=== PATIENT | male | born 1945 | race Caucasian/White ===

== ENCOUNTER → 2017-01-10 | Outpatient (CLI) | payer OTHER ==
[~2017-01-10] MED LIST: ALBU17IN INH; ALBU83IN INH; ALLO100T PO; BREO1INH INH; BUME0.5T PO; DEMA20TA6 PO; DEXI60CA PO; FLOM5CAP PO; INCR1INH INH; K-TA10TA2 PO; PACE200T PO; PRAD75CA3 PO; PROS5TAB PO; SPIR25TA2 PO; WELC625T PO; [UNRECOGNIZED DRUG - CODE] INH
[2017-01-10 15:15] LABS: ALBUMIN 3.7 GM/DL (3.2-5.2); ALBUMIN/GLOBULIN RATIO 1.32 (1.00-1.93); ALKALINE PHOSPHATASE 85 U/L (45-117); ALT/SGPT 26 U/L (12-78); ANION GAP 7 MEQ/L (8-16); AST/SGOT 20 U/L (15-37); BILIRUBIN,TOTAL 0.3 MG/DL (0.2-1.0); BLOOD UREA NITROGEN 22 MG/DL (7-18); CALCIUM LEVEL 8.6 MG/DL (8.8-10.2); CARBON DIOXIDE LEVEL 31 MEQ/L (21-32); CHLORIDE LEVEL 103 MEQ/L (98-107); GLOMERULAR FILTRATION RATE > 60.0 (>42); GLUCOSE, FASTING 95 MG/DL (83-110); MAGNESIUM LEVEL 2.3 MG/DL (1.8-2.4); POTASSIUM SERUM 3.7 MEQ/L (3.5-5.1); SODIUM LEVEL 141 MEQ/L (136-145); TOTAL PROTEIN 6.5 GM/DL (6.4-8.2)
== END ==
LOC: M LAB 14:20
PROVIDERS: ATTEND Internal Medicine Cardiovascular Disease
DX: I25.10 Atherosclerotic heart disease of native coronary artery without angina pectoris (principal); I50.32 Chronic diastolic (congestive) heart failure

== ENCOUNTER → 2017-02-25 | Outpatient (CLI) | payer OTHER ==
[~2017-02-25] MED LIST changes: +COLE625TAB PO; -DEXI60CA PO; +DEXI60CA2 PO; -WELC625T PO
--- NOTE | 2017-03-04 10:05 | REP ---
MAXILLOFACIAL CT WITHOUT CONTRAST: HISTORY: Chronic sinusitis. COMPARISON: 10/18/2014 The sinuses are clear. The osteomeatal units are patent. The middle and inferior nasal turbinates are partially paradoxical. There is marco a bullosa of the right middle nasal turbinate. There is mild deviation of the nasal septum to the left. The cribriform plate, medial robertson of the orbits and optic canals are intact. The carotid canals form a segment of the posterolateral robertson of the sphenoid sinus. Minimal mucosal thickening is present in the left mastoid air cells. There is sclerosis of the left mastoid. These findings are secondary to chronic inflammatory disease. IMPRESSION: There is no acute or chronic sinusitis. Signed by Roberto Dyson MD 03/04/2017 10:07 A
== END ==
LOC: M RAD 16:43
PROVIDERS: ATTEND Otolaryngology
DX: J32.4 Chronic pansinusitis (principal)

== ENCOUNTER → 2018-11-24 | Outpatient (REF) | payer MEDICARE ==
[~2018-11-24] MED LIST changes: -BUME0.5T PO; +BUME0.5T2 PO; +FLOM0.4C39 PO; -FLOM5CAP PO; +SPIR-10 PO; -SPIR25TA2 PO
== END ==
LOC: M LAB REF 16:08
PROVIDERS: ATTEND Physician Assistant
DX: N39.0 Urinary tract infection, site not specified (principal)

== ENCOUNTER → 2019-03-31 | Outpatient (REF) | payer MEDICARE ==
[~2019-03-31] MED LIST changes: -PRAD75CA3 PO; +PRAD75CA5 PO
[2019-03-31 17:06] LABS: BASO # 0.1 10^3/uL (0.0-0.2); BASO % 1.1 % (0.0-1.0); EOS # 0.2 10^3/uL (0.0-0.50); EOS % 2.6 % (0.0-3.0); HEMATOCRIT 44.9 % (42.0-52.0); HEMOGLOBIN 14.2 g/dl (13.5-17.5); LYMPH % 12.9 % (24.0-44.0); MEAN CORPUSCULAR HEMOGLOBIN 30.7 pg (27.0-33.0); MEAN CORPUSCULAR HGB CONC 31.6 g/dl (32.0-36.5); MEAN CORPUSCULAR VOLUME 97.2 fl (80.0-96.0); MONO # 0.7 10^3/uL (0.0-0.8); MONO % 8.2 % (0.0-5.0); NEUTROPHILS # 5.9 10^3/uL (1.8-7.7); NEUTROPHILS % 73.5 % (36.0-66.0); PLATELET COUNT, AUTOMATED 339 10^3/uL (150-450); RED BLOOD COUNT 4.62 10^6/uL (4.30-6.10); WHITE BLOOD COUNT 8.1 10^3/uL (4.0-10.0)
[2019-03-31 17:16] LABS: ALBUMIN 4.3 GM/DL (3.2-5.2); ALT/SGPT 30 U/L (12-78); BILIRUBIN,TOTAL 0.5 MG/DL (0.2-1.0); BLOOD UREA NITROGEN 20 MG/DL (7-18); CARBON DIOXIDE LEVEL 28 MEQ/L (21-32); CHLORIDE LEVEL 105 MEQ/L (98-107); CHOLESTEROL LEVEL 226 MG/DL (<200); CHOLESTEROL RISK RATIO 5.022 (<5); CREATININE FOR GFR 1.23 MG/DL (0.70-1.30); GLOMERULAR FILTRATION RATE > 60.0 (>42); GLUCOSE, FASTING 92 MG/DL (70-100); HDL CHOLESTEROL 45 MG/DL (>40); LDL CHOLESTEROL 147 MG/DL (<100); NON-HDL-C 181 MG/DL; POTASSIUM SERUM 4.5 MEQ/L (3.5-5.1); SODIUM LEVEL 140 MEQ/L (136-145); TOTAL PROTEIN 7.2 GM/DL (6.4-8.2); TRIGLYCERIDES LEVEL 168 MG/DL (<150)
== END ==
LOC: M SFHCADAM 09:35
PROVIDERS: ATTEND Family Medicine
DX: I11.0 Hypertensive heart disease with heart failure (principal); I50.9 Heart failure, unspecified

== ENCOUNTER → 2019-12-31 | Outpatient (CLI) | payer MEDICARE ==
[2019-12-31 16:29] LABS: APPEARANCE, URINE HAZY (CLEAR); BACTERIA, URINE AUTO NEGATIVE (NEGATIVE); BILIRUBIN, URINE AUTO NEGATIVE (NEGATIVE); BLOOD, URINE BLOOD NEGATIVE (NEGATIVE); COLOR, URINE YELLOW (YELLOW); GLUCOSE, URINE (UA) AUTO NEGATIVE (NEGATIVE); KETONE, URINE AUTO NEGATIVE (NEGATIVE); LEUKOCYTE ESTERASE, URINE AUTO 2+ (NEGATIVE); NITRITE, URINE AUTO NEGATIVE (NEGATIVE); PROTEIN, URINE AUTO NEGATIVE (NEGATIVE); RBC, URINE AUTO 5 /HPF (0-3); RENAL EPITHELIAL CELLS 2 /HPF; SPECIFIC GRAVITY URINE AUTO 1.012 (1.002-1.035); SQUAMOUS EPITHELIAL CELL UR AU 0 /HPF (0-6); UROBILINOGEN, URINE AUTO 0.2 mg/dL (0.0-2.0); WBC, URINE AUTO 98 /HPF (0-3)
== END ==
LOC: M WUC 13:41
PROVIDERS: ATTEND Physician Assistant
DX: N39.0 Urinary tract infection, site not specified (principal)

== ENCOUNTER → 2020-04-23 | Outpatient (CLI) | payer MEDICARE | LOC: M WUC 15:31 | PROVIDERS: ATTEND Physician Assistant | DX: Z12.5 Encounter for screening for malignant neoplasm of prostate (principal) ==

== ENCOUNTER → 2020-08-16 | Outpatient (REF) | payer MEDICARE ==
[2020-08-16 18:12] LABS: APPEARANCE, URINE HAZY (CLEAR); BACTERIA, URINE AUTO NEGATIVE (NEGATIVE); BILIRUBIN, URINE AUTO NEGATIVE (NEGATIVE); BLOOD, URINE BLOOD NEGATIVE (NEGATIVE); COLOR, URINE YELLOW (YELLOW); GLUCOSE, URINE (UA) AUTO NEGATIVE (NEGATIVE); KETONE, URINE AUTO NEGATIVE (NEGATIVE); LEUKOCYTE ESTERASE, URINE AUTO 2+ (NEGATIVE); NITRITE, URINE AUTO NEGATIVE (NEGATIVE); PROTEIN, URINE AUTO NEGATIVE (NEGATIVE); RBC, URINE AUTO 1 /HPF (0-3); SPECIFIC GRAVITY URINE AUTO 1.014 (1.002-1.035); SQUAMOUS EPITHELIAL CELL UR AU 0 /HPF (0-6); UROBILINOGEN, URINE AUTO 0.2 mg/dL (0.0-2.0); WBC, URINE AUTO 108 /HPF (0-3)
== END ==
LOC: M LAB REF 17:50
PROVIDERS: ATTEND Physician Assistant Medical
DX: R30.0 Dysuria (principal)

== ENCOUNTER → 2020-10-02 | Outpatient (CLI) | payer MEDICARE | LOC: M WUC 14:36 | PROVIDERS: ATTEND Physician Assistant | DX: N40.0 Benign prostatic hyperplasia without lower urinary tract symptoms (principal) ==

== ENCOUNTER → 2021-03-30 | Outpatient (CLI) | payer MEDICARE ==
[2021-03-30 18:05] LABS: CALCIUM LEVEL 9.5 MG/DL (8.8-10.2); CREATININE FOR GFR 1.45 MG/DL (0.70-1.30); GLOMERULAR FILTRATION RATE 50.6 (>42); POTASSIUM SERUM 3.5 MEQ/L (3.5-5.1)
== END ==
LOC: M WUC 13:57
PROVIDERS: ATTEND Internal Medicine Cardiovascular Disease
DX: Z00.00 Encounter for general adult medical examination without abnormal findings (principal)

== ENCOUNTER → 2021-10-12 | Outpatient (CLI) | payer MEDICARE ==
[2021-10-12 16:12] LABS: CREATININE FOR GFR 1.53 MG/DL (0.70-1.30); GLOMERULAR FILTRATION RATE 47.6 (>42)
== END ==
LOC: M WUC 14:09
PROVIDERS: ATTEND Internal Medicine Cardiovascular Disease
DX: R79.89 Other specified abnormal findings of blood chemistry (principal)

== ENCOUNTER → 2022-02-09 | Outpatient (CLI) | payer MEDICARE ==
[~2022-02-09] MED LIST changes: +ALBU2.5V10 INH; -ALBU83IN INH
[2022-02-09 13:18] LABS: HEMOGLOBIN A1c 5.7 %
[2022-02-09 13:26] LABS: CALCIUM LEVEL 9.6 MG/DL (8.8-10.2); CHOLESTEROL RISK RATIO 3.94 (<5); CREATININE FOR GFR 1.78 MG/DL (0.70-1.30); GLOMERULAR FILTRATION RATE 39.9 (>42); POTASSIUM SERUM 4.4 MEQ/L (3.5-5.1)
== END ==
LOC: M ADAMS 11:00
PROVIDERS: ATTEND Student in an Organized Health Care Education/Training Program
DX: I50.9 Heart failure, unspecified (principal); Z79.899 Other long term (current) drug therapy

== ENCOUNTER → 2022-04-07 | Outpatient (CLI) | payer MEDICARE | LOC: M WUC 15:10 | PROVIDERS: ATTEND Physician Assistant | DX: Z12.5 Encounter for screening for malignant neoplasm of prostate (principal) ==

== ENCOUNTER → 2022-09-06 | Outpatient (CLI) | payer MEDICARE ==
[~2022-09-06] MED LIST changes: +COLE625T17 PO; -COLE625TAB PO
[2022-09-06 16:45] LABS: BASO # 0.1 10^3/uL (0.0-0.2); BASO % 1.3 % (0.0-1.0); EOS # 0.3 10^3/uL (0.0-0.5); EOS % 3.8 % (0.0-3.0); HEMATOCRIT 44.4 % (42.0-52.0); HEMOGLOBIN 13.7 g/dl (13.5-17.5); LYMPH % 11.8 % (24.0-44.0); MEAN CORPUSCULAR HEMOGLOBIN 31.2 pg (27.0-33.0); MEAN CORPUSCULAR HGB CONC 30.9 g/dl (32.0-36.5); MEAN CORPUSCULAR VOLUME 101.1 fl (80.0-96.0); MONO # 0.6 10^3/uL (0.0-0.8); MONO % 7.2 % (2.0-8.0); NEUTROPHILS # 6.4 10^3/uL (1.5-8.5); NEUTROPHILS % 73.8 % (36.0-66.0); PLATELET COUNT, AUTOMATED 298 10^3/uL (150-450); RED BLOOD COUNT 4.39 10^6/uL (4.30-6.10); WHITE BLOOD COUNT 8.6 10^3/uL (4.0-10.0)
== END ==
LOC: M WUC 13:15
PROVIDERS: ATTEND Nurse Practitioner
DX: I50.9 Heart failure, unspecified (principal)

== ENCOUNTER → 2022-10-04 | Outpatient (CLI) | payer MEDICARE ==
[2022-10-04 14:58] LABS: BASO # 0.1 10^3/uL (0.0-0.2); BASO % 1.5 % (0.0-1.0); EOS # 0.3 10^3/uL (0.0-0.5); EOS % 3.7 % (0.0-3.0); HEMATOCRIT 42.8 % (42.0-52.0); HEMOGLOBIN 13.1 g/dl (13.5-17.5); LYMPH # 0.7 10^3/uL (1.5-5.0); MEAN CORPUSCULAR HEMOGLOBIN 31.4 pg (27.0-33.0); MEAN CORPUSCULAR HGB CONC 30.6 g/dl (32.0-36.5); MEAN CORPUSCULAR VOLUME 102.6 fl (80.0-96.0); MONO # 0.8 10^3/uL (0.0-0.8); MONO % 10.9 % (2.0-8.0); NEUTROPHILS # 5.3 10^3/uL (1.5-8.5); NEUTROPHILS % 73.5 % (36.0-66.0); PLATELET COUNT, AUTOMATED 263 10^3/uL (150-450); RED BLOOD COUNT 4.17 10^6/uL (4.30-6.10); WHITE BLOOD COUNT 7.2 10^3/uL (4.0-10.0)
[2022-10-04 15:03] LABS: ALBUMIN 4.1 G/DL (3.2-5.2); BILIRUBIN,TOTAL 0.9 MG/DL (0.3-1.2); CALCIUM LEVEL 9.2 MG/DL (8.3-10.6); CHOLESTEROL RISK RATIO 5.58 (<5); CREATININE FOR GFR 1.32 MG/DL (0.70-1.30); GLOMERULAR FILTRATION RATE 56.3 (>42); HDL CHOLESTEROL 38.3 MG/DL (>40); LDL CHOLESTEROL 141.9 MG/DL (<100); POTASSIUM SERUM 4.3 MMOL/L (3.5-5.1); TOTAL PROTEIN 6.9 G/DL (5.7-8.2)
[2022-10-04 15:05] LABS: THYROID STIMULATING HORMONE 3.133 uIU/ML (0.55-4.78)
[2022-10-04 15:13] LABS: CREATININE, URINE 58.9 MG/DL; CREATININE,RANDOM URINE 58.9 MG/DL; MAU/CREAT RATIO 84.8 MCG/MG (0.0-30.0)
[2022-10-04 15:22] LABS: HEMOGLOBIN A1c 5.5 % (4.0-6.0)
== END ==
LOC: M WUC 10:48
PROVIDERS: ATTEND Nurse Practitioner
DX: J44.9 Chronic obstructive pulmonary disease, unspecified (principal); I50.9 Heart failure, unspecified; K21.9 Gastro-esophageal reflux disease without esophagitis; Z79.899 Other long term (current) drug therapy

== ENCOUNTER → 2022-11-19 | Outpatient (CLI) | payer MEDICARE ==
[2022-11-19 16:52] LABS: BASO # 0.1 10^3/uL (0.0-0.2); BASO % 1.4 % (0.0-1.0); EOS # 0.3 10^3/uL (0.0-0.5); EOS % 3.1 % (0.0-3.0); HEMATOCRIT 42.5 % (42.0-52.0); HEMOGLOBIN 13.1 g/dl (13.5-17.5); LYMPH % 11.1 % (24.0-44.0); MEAN CORPUSCULAR HEMOGLOBIN 31.1 pg (27.0-33.0); MEAN CORPUSCULAR HGB CONC 30.8 g/dl (32.0-36.5); MONO # 0.8 10^3/uL (0.0-0.8); MONO % 8.4 % (2.0-8.0); NEUTROPHILS # 6.8 10^3/uL (1.5-8.5); PLATELET COUNT, AUTOMATED 315 10^3/uL (150-450); RED BLOOD COUNT 4.21 10^6/uL (4.30-6.10)
[2022-11-19 16:58] LABS: ALBUMIN 4.2 G/DL (3.2-5.2); ALKALINE PHOSPHATASE 90 U/L (46-116); ALT/SGPT 31 U/L (7.0-40); AST/SGOT 15 U/L (<34); BILIRUBIN,TOTAL 0.7 MG/DL (0.3-1.2); BLOOD UREA NITROGEN 28 MG/DL (9-23); CALCIUM LEVEL 9.5 MG/DL (8.3-10.6); CARBON DIOXIDE LEVEL 31 MMOL/L (20-31); CHLORIDE LEVEL 101 MMOL/L (98-107); CREATININE FOR GFR 1.29 MG/DL (0.70-1.30); GLOMERULAR FILTRATION RATE 57.6 (>42); GLUCOSE, FASTING 125 MG/DL (74-106); POTASSIUM SERUM 4.1 MMOL/L (3.5-5.1); SODIUM LEVEL 140 MMOL/L (136-145); TOTAL PROTEIN 6.9 G/DL (5.7-8.2); VITAMIN B12 LEVEL 231 PG/ML (211-911)
[2022-11-19 17:02] LABS: FOLATE > 24.00 NG/ML (>5.4)
== END ==
LOC: M WUC 12:02
PROVIDERS: ATTEND Nurse Practitioner
DX: I10 Essential (primary) hypertension (principal); G47.30 Sleep apnea, unspecified

== ENCOUNTER → 2023-04-18 | Outpatient (CLI) | payer MEDICARE ==
[~2023-04-18] MED LIST changes: +ALBU6.7H6 INH; +ASPI81CH33 PO; +AZIT-12 PO; +CETI10CA13 PO; +FINA-48 PO; +IPRA3SP; -K-TA10TA2 PO; +LEVOTAB10; +LOSA50TA28 PO; +MONT10TA97 PO; +POTA-165 PO; -PROS5TAB PO; +TORS20TA2 PO
== END ==
LOC: M WUC 15:09
PROVIDERS: ATTEND Specialist
DX: N40.1 Benign prostatic hyperplasia with lower urinary tract symptoms (principal)

== ENCOUNTER → 2023-07-12 | Outpatient (REF) | payer MEDICARE | LOC: M LAB REF 19:22 | PROVIDERS: ATTEND Physician Assistant | DX: N39.0 Urinary tract infection, site not specified (principal) ==

== ENCOUNTER → 2023-08-26 | Outpatient (CLI) | payer MEDICARE ==
[2023-08-26 14:44] LABS: HEMATOCRIT 41.9 % (42.0-52.0); MEAN CORPUSCULAR HEMOGLOBIN 31.6 pg (27.0-33.0); MEAN CORPUSCULAR VOLUME 101.7 fl (80.0-96.0); PLATELET COUNT, AUTOMATED 253 10^3/uL (150-450); RED BLOOD COUNT 4.12 10^6/uL (4.30-6.10); WHITE BLOOD COUNT 10.2 10^3/uL (4.0-10.0)
[2023-08-26 15:11] LABS: CREATININE, URINE 17.8 MG/DL; MAU/CREAT RATIO 16.8 MCG/MG (0.0-30.0)
[2023-08-26 15:13] LABS: IRON (FE) 142 UG/DL (65-175); PERCENT SATURATION 40.9 % (19.7-50.0); TOTAL IRON BINDING CAPACITY 347 UG/DL (250-425)
[2023-08-26 15:17] LABS: ALBUMIN 3.7 G/DL (3.2-5.2); ALKALINE PHOSPHATASE 100 U/L (46-116); ALT/SGPT 18 U/L (7.0-40); AST/SGOT 11 U/L (<34); BLOOD UREA NITROGEN 33 MG/DL (9-23); CALCIUM LEVEL 9.4 MG/DL (8.3-10.6); CARBON DIOXIDE LEVEL 33 MMOL/L (20-31); CHLORIDE LEVEL 103 MMOL/L (98-107); CREATININE FOR GFR 1.72 MG/DL (0.70-1.30); FERRITIN 78.8 NG/ML (10.5-307.3); FOLATE > 24.00 NG/ML (>5.4); GLOMERULAR FILTRATION RATE 41.4 (>42); GLUCOSE, FASTING 112 MG/DL (74-106); POTASSIUM SERUM 4.4 MMOL/L (3.5-5.1); SODIUM LEVEL 143 MMOL/L (136-145); TOTAL PROTEIN 6.3 G/DL (5.7-8.2); VITAMIN B12 LEVEL 1220 PG/ML (211-911)
== END ==
LOC: M WUC 13:18
PROVIDERS: ATTEND Nurse Practitioner
DX: J40 Bronchitis, not specified as acute or chronic (principal); J44.9 Chronic obstructive pulmonary disease, unspecified; I50.9 Heart failure, unspecified; I51.7 Cardiomegaly; Z95.0 Presence of cardiac pacemaker; I27.20 Pulmonary hypertension, unspecified

== ENCOUNTER 2023-11-24 13:17 | Inpatient (IN) | payer MEDICARE ==
[2023-11-24] VITALS (8 sets, daily range): BP systolic 128–151; BP diastolic 59–67; TEMP 97.2–97.3; O2SAT 90–95
[~2023-11-24] VITALS: Ht 177.8 cm; Wt 107.5 kg
[2023-11-24] MEDS: IPRATROPIUM 0.5MG/ALBUTEROL 2.5MG INH SOL UD 3ML (DUONEB) NEB PRN (14:06)
[2023-11-24] MEDS: methylPREDNISolone 125MG 2ML VIAL IV ONE (14:27)
[2023-11-24] MEDS ORDERED: VITA500T16 PO (14:44)
[2023-11-24] MEDS ORDERED: BUDE10.7 (14:44)
[2023-11-24] MEDS ORDERED: OMEGCAP9 PO (14:44)
[2023-11-24] MEDS ORDERED: CVS50CAP PO (14:44)
[2023-11-24] MEDS ORDERED: MUCI1TAB16 PO (14:44)
[2023-11-24] MEDS ORDERED: zinc PO (14:44)
[2023-11-24] MEDS ORDERED: EPLE25TA (14:44)
[2023-11-24] MEDS ORDERED: POTA-136 (14:44)
[2023-11-24] MEDS ORDERED: D 50CAP2 PO (14:44)
[2023-11-24] MEDS ORDERED: CARV3.12 (14:44)
[2023-11-24] MEDS ORDERED: FLUT1BLS17 (14:44)
[2023-11-24] MEDS ORDERED: TORS20TA2 PO (14:44)
[2023-11-24] MEDS ORDERED: NEXI20CA PO (14:44)
[2023-11-24] MEDS ORDERED: ZYRTTAB8 PO (14:44)
[2023-11-24] MEDS ORDERED: glucosamine PO (14:44)
[2023-11-24] MEDS ORDERED: BREO1INH3 (14:44)
[2023-11-24] MEDS ORDERED: GENT28CA2 PO (14:44)
[2023-11-24 14:49] LABS: BASO # 0.1 10^3/uL (0.0-0.2); BASO % 0.3 % (0.0-1.0); EOS # 0.1 10^3/uL (0.0-0.5); EOS % 0.1 % (0.0-3.0); HEMOGLOBIN 11.5 g/dl (13.5-17.5); LYMPH # 0.3 10^3/uL (1.5-5.0); LYMPH % 0.7 % (24.0-44.0); MEAN CORPUSCULAR HEMOGLOBIN 31.1 pg (27.0-33.0); MEAN CORPUSCULAR HGB CONC 31.9 g/dl (32.0-36.5); MEAN CORPUSCULAR VOLUME 97.3 fl (80.0-96.0); MONO # 0.9 10^3/uL (0.0-0.8); MONO % 2.2 % (2.0-8.0); NEUTROPHILS # 37.9 10^3/uL (1.5-8.5); NEUTROPHILS % 92.9 % (36.0-66.0); PLATELET COUNT, AUTOMATED 226 10^3/uL (150-450)
[2023-11-24 14:51] LABS: WHITE BLOOD COUNT 40.8 10^3/uL (4.0-10.0)
[2023-11-24 15:14] LABS: ALBUMIN 2.4 G/DL (3.2-5.2); BILIRUBIN,DIRECT 0.4 MG/DL (<0.4); BILIRUBIN,TOTAL 0.7 MG/DL (0.3-1.2); CALCIUM LEVEL 9.1 MG/DL (8.3-10.6); CK-MB VALUE MASS 2.5 NG/ML (<3.6); CREATININE FOR GFR 2.34 MG/DL (0.70-1.30); GLOMERULAR FILTRATION RATE 28.9 (>42); MB/CK RELATIVE INDEX 6.57 (< OR =4); POTASSIUM SERUM 3.8 MMOL/L (3.5-5.1); TOTAL PROTEIN 5.8 G/DL (5.7-8.2)
[2023-11-24 15:51] LABS: URIC ACID 12.9 MG/DL (3.7-9.2)
[2023-11-24] MEDS: cefTRIAXone SOD 2 GM in D5W MINI-BAG PLUS 50 ML IV ONE (16:09)
[2023-11-24] MEDS: FUROSEMIDE 40MG/4ML VIAL IV ONE (16:10)
[2023-11-24] MEDS ORDERED: HEPARIN SOD (PORCINE) 5000UNITS/ML 1ML VIAL/SYRINGE SQ SCH (18:15)
[2023-11-24] MEDS: LACTOBACILLUS ACIDOPHILUS CAP (BACID) PO SCH (18:18)
[2023-11-24 18:30] LABS: ERYTHROCYTE SEDIMENTATION RATE 86 mm/hr (0-20)
[2023-11-24 18:47] LABS: PROCALCITONIN 0.59 ng/ml
[2023-11-24 19:05] LABS: C REACTIVE PROTEIN QUANTITATIV 25.6 MG/DL (<1.0)
[2023-11-24 19:25] LABS: INR 1.63; PROTHROMBIN TIME 18.8 SECONDS (12.5-14.5)
[2023-11-24] MEDS ORDERED: FLUTICASONE HFA 110MCG 12GM INHALER (FLOVENT) INH SCH (21:00)
[2023-11-24] MEDS ORDERED: CARV3.12 PO (23:48)
[2023-11-24] MEDS ORDERED: CHEL50TA3 PO (23:48)
[2023-11-24] MEDS ORDERED: ASPI-615 PO (23:48)
[2023-11-24] MEDS ORDERED: FLON1SPR NARES (23:48)
[2023-11-24] MEDS ORDERED: POTA-150 PO (23:48)
[2023-11-24] MEDS ORDERED: DOCU100C16 PO (23:48)
[2023-11-24] MEDS ORDERED: OMEG10002 PO (23:48)
[2023-11-24] MEDS ORDERED: BREO1INH3 INH (23:48)
[2023-11-24] MEDS ORDERED: EPLE25TA PO (23:48)
[2023-11-24] MEDS ORDERED: MONT10TA97 PO (23:48)
[2023-11-24] MEDS ORDERED: CETI-14 PO (23:48)
[2023-11-24] MEDS ORDERED: GNP1000T11 PO (23:48)
[2023-11-24] MEDS ORDERED: IPRA3SP NARES (23:48)
[2023-11-24] MEDS ORDERED: C-101TAB3 PO (23:48)
[2023-11-25] VITALS (37 sets, daily range): BP systolic 130–135; BP diastolic 58–63; TEMP 96.8–97.6; O2SAT 85–99
[2023-11-25] MEDS: CARVedilol 3.125 MG TAB PO SCH (00:03)
[2023-11-25 00:16] LABS: CK-MB VALUE MASS 1.8 NG/ML (<3.6)
[2023-11-25 00:18] LABS: MB/CK RELATIVE INDEX 5.8 (< OR =4)
[2023-11-25] MEDS: MONTELUKAST 10 MG TAB PO SCH (01:06)
[2023-11-25] MEDS: PIPERACILLIN/TAZOBACTAM SOD 3.375 GM in D5W MINI-BAG PLUS 50 ML IV SCH (01:06)
[2023-11-25] MEDS: TAMSULOSIN 0.4 MG CAP PO SCH (01:06)
[2023-11-25] MEDS: allopurinoL 100 MG TAB PO STA (01:08)
[2023-11-25] MEDS: MOM 30ML SUSPENSION UDC PO PRN (01:21)
[2023-11-25] MEDS ORDERED: MED REC IN PROGRESS XX SCH (01:30)
[2023-11-25] MEDS ORDERED: SODI88SP NARES (02:14)
[2023-11-25] MEDS ORDERED: RISATAB3 PO (02:14)
[2023-11-25] MEDS: VANCOMYCIN HCL 1,000 MG, VIAL MATE ADAPTER 1 EACH in D5W 250 ML IV ONE ×2 (02:34→03:52)
[2023-11-25] MEDS: BENZONATATE 100MG CAPSULE PO PRN (04:53)
[2023-11-25 06:07] LABS: HEMATOCRIT 34.9 % (42.0-52.0); HEMOGLOBIN 11.2 g/dl (13.5-17.5); MEAN CORPUSCULAR HEMOGLOBIN 30.4 pg (27.0-33.0); MEAN CORPUSCULAR HGB CONC 32.1 g/dl (32.0-36.5); MEAN CORPUSCULAR VOLUME 94.6 fl (80.0-96.0); PLATELET COUNT, AUTOMATED 241 10^3/uL (150-450); RED BLOOD COUNT 3.69 10^6/uL (4.30-6.10)
[2023-11-25 06:13] LABS: WHITE BLOOD COUNT 38.4 10^3/uL (4.0-10.0)
[2023-11-25 06:26] LABS: INR 1.64; PARTIAL THROMBOPLASTIN TIME 41.7 SECONDS (24.8-34.2); PROTHROMBIN TIME 18.9 SECONDS (12.5-14.5)
[2023-11-25 06:32] LABS: URIC ACID 12.9 MG/DL (3.7-9.2)
[2023-11-25 06:34] LABS: CK-MB VALUE MASS 2.6 NG/ML (<3.6)
[2023-11-25 06:35] LABS: ALBUMIN 2.4 G/DL (3.2-5.2); BILIRUBIN,DIRECT 0.3 MG/DL (<0.4); BILIRUBIN,TOTAL 0.4 MG/DL (0.3-1.2); CALCIUM LEVEL 8.9 MG/DL (8.3-10.6); CREATININE FOR GFR 2.33 MG/DL (0.70-1.30); GLOMERULAR FILTRATION RATE 29.1 (>42); MAGNESIUM LEVEL 2.6 MG/DL (1.8-2.4); POTASSIUM SERUM 4.1 MMOL/L (3.5-5.1); TOTAL PROTEIN 5.7 G/DL (5.7-8.2)
[2023-11-25 06:37] LABS: MB/CK RELATIVE INDEX 6.19 (< OR =4)
[2023-11-25 06:54] LABS: MONOCYTES 2 % (0-5); NEUTROPHILS 97 % (28-66); PLATELET ESTIMATE NORMAL (NORMAL)
[2023-11-25 06:55] LABS: ANISOCYTOSIS 1+; POIKILOCYTOSIS 1+
[2023-11-25] MEDS: SYMBICORT 160/4.5MCG INHALER 6GM INH SCH (07:32)
[2023-11-25] MEDS ORDERED: VITAMIN D 1,000 INTERNATIONAL UNITS TABLET PO SCH (09:00)
[2023-11-25] MEDS: FLUTICASONE PROP 0.05% NASAL SPRAY 16 GM (FLONASE) NARES SCH (09:25)
[2023-11-25] MEDS: MIRALAX *UNIT DOSE* 17GM PACKET PO PRN (09:25)
[2023-11-25] MEDS: OMEPRAZOLE 20MG CAP PO SCH (09:26)
[2023-11-25] MEDS: CETIRIZINE (ZyrTEC) 10 MG TAB PO SCH (09:26)
[2023-11-25] MEDS: ASCORBIC ACID 500 MG TAB PO SCH (09:27)
[2023-11-25] MEDS: ASPIRIN 81MG CHEW TABLET PO SCH (09:27)
[2023-11-25] MEDS ORDERED: HOME MED LIST COMPLETE! XX SCH (10:10)
[2023-11-25] MEDS: IPRATROPIUM 0.5MG/ALBUTEROL 2.5MG INH SOL UD 3ML (DUONEB) NEB PRN (10:28)
[2023-11-25] MEDS: TIOTROPIUM INHALER/CAPSULE (SPIRIVA) INH SCH (10:29)
[2023-11-25] MEDS: FUROSEMIDE 40MG/4ML VIAL IV SCH (11:43)
[2023-11-25 15:17] LABS: CK-MB VALUE MASS 2.8 NG/ML (<3.6)
[2023-11-25 15:24] LABS: MB/CK RELATIVE INDEX 6.36 (< OR =4)
[2023-11-25] MEDS: allopurinoL 100 MG TAB PO SCH (18:13)
[2023-11-25] MEDS: VANCOMYCIN HCL 500 MG in D5W MINI-BAG PLUS 100 ML IV SCH (20:34)
[2023-11-26] VITALS (31 sets, daily range): BP systolic 115–187; BP diastolic 58–95; TEMP 97.1–98.8; O2SAT 88–99
[2023-11-26] MEDS ORDERED: VANCOMYCIN HCL 1,000 MG, VIAL MATE ADAPTER 1 EACH in D5W 250 ML IV SCH (05:00)
[2023-11-26 06:48] LABS: BASO % 0.2 % (0.0-1.0); EOS % 0.6 % (0.0-3.0); HEMATOCRIT 33.9 % (42.0-52.0); LYMPH # 0.4 10^3/uL (1.5-5.0); LYMPH % 1.7 % (24.0-44.0); MEAN CORPUSCULAR HEMOGLOBIN 31.1 pg (27.0-33.0); MEAN CORPUSCULAR HGB CONC 32.4 g/dl (32.0-36.5); MEAN CORPUSCULAR VOLUME 95.8 fl (80.0-96.0); MONO # 1.1 10^3/uL (0.0-0.8); NEUTROPHILS # 19.1 10^3/uL (1.5-8.5); NEUTROPHILS % 90.2 % (36.0-66.0); PLATELET COUNT, AUTOMATED 228 10^3/uL (150-450); RED BLOOD COUNT 3.54 10^6/uL (4.30-6.10); WHITE BLOOD COUNT 21.2 10^3/uL (4.0-10.0)
[2023-11-26 06:49] LABS: BASO # 0.1 10^3/uL (0.0-0.2); EOS # 0.1 10^3/uL (0.0-0.5)
[2023-11-26 07:09] LABS: CALCIUM LEVEL 8.9 MG/DL (8.3-10.6); CREATININE FOR GFR 2.28 MG/DL (0.70-1.30); GLOMERULAR FILTRATION RATE 29.8 (>42); MAGNESIUM LEVEL 2.8 MG/DL (1.8-2.4)
[2023-11-26] MEDS: VANCOMYCIN HCL 1,000 MG, VIAL MATE ADAPTER 1 EACH in D5W 250 ML IV SCH (09:32)
[2023-11-26] MEDS: FUROSEMIDE 100MG/10ML VIAL IV SCH (11:32)
[2023-11-26] MEDS: ONDANSETRON 4MG 2ML VIAL IV ONE (18:23)
[2023-11-27] VITALS (13 sets, daily range): BP systolic 118–155; BP diastolic 61–74; TEMP 97–98.9; O2SAT 85–97
[2023-11-27 07:56] LABS: HEMATOCRIT 34.5 % (42.0-52.0); LYMPH % 2.3 % (24.0-44.0); MEAN CORPUSCULAR HGB CONC 31.9 g/dl (32.0-36.5); MEAN CORPUSCULAR VOLUME 97.2 fl (80.0-96.0); NEUTROPHILS % 85.7 % (36.0-66.0); PLATELET COUNT, AUTOMATED 213 10^3/uL (150-450); RED BLOOD COUNT 3.55 10^6/uL (4.30-6.10); WHITE BLOOD COUNT 14.1 10^3/uL (4.0-10.0)
[2023-11-27 07:57] LABS: BASO % 0.2 % (0.0-1.0); EOS # 0.2 10^3/uL (0.0-0.5); EOS % 1.7 % (0.0-3.0); LYMPH # 0.3 10^3/uL (1.5-5.0); MONO # 0.9 10^3/uL (0.0-0.8); MONO % 6.3 % (2.0-8.0); NEUTROPHILS # 12.1 10^3/uL (1.5-8.5)
[2023-11-27 08:23] LABS: CALCIUM LEVEL 8.7 MG/DL (8.3-10.6); CREATININE FOR GFR 2.28 MG/DL (0.70-1.30); GLOMERULAR FILTRATION RATE 29.8 (>42); MAGNESIUM LEVEL 2.6 MG/DL (1.8-2.4); POTASSIUM SERUM 3.8 MMOL/L (3.5-5.1)
[2023-11-27 08:58] LABS: VANCOMYCIN LEVEL TROUGH 15.5 UG/ML (10.0-20.0)
[2023-11-27] MEDS: cefTRIAXone SOD 2 GM in D5W MINI-BAG PLUS 50 ML IV SCH (11:41)
[2023-11-27] MEDS: LOPERAMIDE 2 MG CAPLET PO PRN (11:42)
[2023-11-28 03:48] VITALS: BP 122/58; TEMP 97.9; O2SAT 92
[2023-11-28 05:39] LABS: HEMATOCRIT 35.2 % (42.0-52.0); MEAN CORPUSCULAR VOLUME 96.4 fl (80.0-96.0); RED BLOOD COUNT 3.65 10^6/uL (4.30-6.10)
[2023-11-28 05:40] LABS: BASO # 0.1 10^3/uL (0.0-0.2); BASO % 0.4 % (0.0-1.0); EOS # 0.3 10^3/uL (0.0-0.5); EOS % 1.8 % (0.0-3.0); LYMPH # 0.4 10^3/uL (1.5-5.0); LYMPH % 2.3 % (24.0-44.0); MEAN CORPUSCULAR HEMOGLOBIN 30.1 pg (27.0-33.0); MEAN CORPUSCULAR HGB CONC 31.3 g/dl (32.0-36.5); MONO # 1.1 10^3/uL (0.0-0.8); MONO % 6.9 % (2.0-8.0); NEUTROPHILS # 13.4 10^3/uL (1.5-8.5); PLATELET COUNT, AUTOMATED 229 10^3/uL (150-450)
[2023-11-28 06:02] LABS: CALCIUM LEVEL 9.1 MG/DL (8.3-10.6); CREATININE FOR GFR 2.31 MG/DL (0.70-1.30); GLOMERULAR FILTRATION RATE 29.4 (>42); MAGNESIUM LEVEL 2.7 MG/DL (1.8-2.4); POTASSIUM SERUM 3.5 MMOL/L (3.5-5.1)
[2023-11-28 07:46] VITALS: BP 131/60; TEMP 96.9; O2SAT 95
[2023-11-28] MEDS ORDERED: IPRATROPIUM 0.5MG/ALBUTEROL 2.5MG INH SOL UD 3ML (DUONEB) NEB PRN (10:30)
[2023-11-28 11:24] VITALS: BP 130/60; TEMP 97.1; O2SAT 96
[2023-11-28] MEDS: SODIUM CHLORIDE HYPERTONIC 3% 4ML NEB SOL INH SCH (12:00)
[2023-11-28] MEDS: LEVALBUTEROL 1.25MG 0.5ML CONCENTRATE NEB INH SCH (12:00)
[2023-11-28] MEDS: POTASSIUM CHLORIDE 10MEQ SR TABLET PO SCH (12:08)
[2023-11-28 20:04] VITALS: BP 130/59; TEMP 97.9; O2SAT 95
[2023-11-29 03:49] VITALS: BP 133/61; TEMP 97.2; O2SAT 94
[2023-11-29 05:39] LABS: BASO # 0.1 10^3/uL (0.0-0.2); BASO % 0.6 % (0.0-1.0); EOS # 0.3 10^3/uL (0.0-0.5); EOS % 1.9 % (0.0-3.0); HEMATOCRIT 34.3 % (42.0-52.0); HEMOGLOBIN 10.8 g/dl (13.5-17.5); LYMPH # 0.3 10^3/uL (1.5-5.0); LYMPH % 2.1 % (24.0-44.0); MEAN CORPUSCULAR HEMOGLOBIN 30.3 pg (27.0-33.0); MEAN CORPUSCULAR HGB CONC 31.5 g/dl (32.0-36.5); MEAN CORPUSCULAR VOLUME 96.3 fl (80.0-96.0); MONO % 5.9 % (2.0-8.0); NEUTROPHILS # 13.6 10^3/uL (1.5-8.5); NEUTROPHILS % 84.8 % (36.0-66.0); PLATELET COUNT, AUTOMATED 229 10^3/uL (150-450); RED BLOOD COUNT 3.56 10^6/uL (4.30-6.10); WHITE BLOOD COUNT 16.1 10^3/uL (4.0-10.0)
[2023-11-29 06:12] LABS: CALCIUM LEVEL 8.7 MG/DL (8.3-10.6); CREATININE FOR GFR 1.77 MG/DL (0.70-1.30); GLOMERULAR FILTRATION RATE 39.9 (>42); MAGNESIUM LEVEL 2.4 MG/DL (1.8-2.4); POTASSIUM SERUM 3.6 MMOL/L (3.5-5.1)
[2023-11-29 07:34] VITALS: BP 136/63; TEMP 98.3; O2SAT 91
[2023-11-29] MEDS: POTASSIUM CHLORIDE 10MEQ SR TABLET PO SCH (11:54)
[2023-11-29 15:21] LABS: BODY FLUID CULTURE Not indicated. (.); LEGIONELLA ANTIGEN URINE Negative (Negative); ORGANISM ID Not indicated. (.); SPECIMEN SOURCE Urine (.); URINE STREP PNEUMONIAE ANTIGEN Negative (Negative)
[2023-11-29 16:15] VITALS: BP 137/63; TEMP 97.8; O2SAT 94
[2023-11-29 19:36] LABS: PERCENT SATURATION 8.9 % (19.7-50.0)
[2023-11-29 19:41] VITALS: BP 135/62; TEMP 98.1; O2SAT 93
[2023-11-29] MEDS ORDERED: HEPARIN SOD (PORCINE) 5000UNITS/ML 1ML VIAL/SYRINGE SQ SCH (21:00)
[2023-11-30 03:36] VITALS: BP 135/61; TEMP 97.5; O2SAT 92
[2023-11-30 06:23] LABS: BASO # 0.1 10^3/uL (0.0-0.2); BASO % 0.7 % (0.0-1.0); EOS # 0.3 10^3/uL (0.0-0.5); EOS % 2.2 % (0.0-3.0); HEMATOCRIT 34.8 % (42.0-52.0); HEMOGLOBIN 10.8 g/dl (13.5-17.5); LYMPH # 0.4 10^3/uL (1.5-5.0); MEAN CORPUSCULAR HEMOGLOBIN 30.5 pg (27.0-33.0); MEAN CORPUSCULAR VOLUME 98.3 fl (80.0-96.0); MONO # 1.1 10^3/uL (0.0-0.8); MONO % 7.1 % (2.0-8.0); NEUTROPHILS # 12.1 10^3/uL (1.5-8.5); PLATELET COUNT, AUTOMATED 255 10^3/uL (150-450); RED BLOOD COUNT 3.54 10^6/uL (4.30-6.10); WHITE BLOOD COUNT 14.8 10^3/uL (4.0-10.0)
[2023-11-30 07:12] LABS: C REACTIVE PROTEIN QUANTITATIV 4.3 MG/DL (<1.0)
[2023-11-30 07:13] LABS: CALCIUM LEVEL 8.9 MG/DL (8.3-10.6); CREATININE FOR GFR 1.6 MG/DL (0.70-1.30); GLOMERULAR FILTRATION RATE 44.8 (>42); MAGNESIUM LEVEL 2.4 MG/DL (1.8-2.4); POTASSIUM SERUM 3.8 MMOL/L (3.5-5.1)
[2023-11-30 07:46] VITALS: BP 153/66; TEMP 97.8; O2SAT 95
[2023-11-30] MEDS: POTASSIUM CHLORIDE 10MEQ SR TABLET PO SCH (09:57)
[2023-11-30 12:55] VITALS: BP 126/58; TEMP 97.2; O2SAT 94
[2023-11-30 14:30] LABS: PROCALCITONIN 0.1 ng/ml
[2023-11-30] MEDS: guaiFENesin SYRUP 200MG 10ML UDC PO PRN (14:42)
[2023-11-30 16:00] VITALS: BP 156/67; TEMP 97.3; O2SAT 99
[2023-11-30] MEDS ORDERED: LIDOCAINE 2% 100MG/5ML SDV (FOR ANES.) As Ordered ONE (17:47)
[2023-11-30] MEDS ORDERED: propofoL 200 MG/20 ML VIAL As Ordered ONE (17:47)
[2023-11-30] MEDS ORDERED: MIDAZOLAM INJ 2MG/2ML VIAL As Ordered ONE (17:48)
[2023-11-30] MEDS: CETACAINE SPRAY 5GM As Ordered ONE (17:56)
[2023-11-30] MEDS ORDERED: ePHEDrine SULFATE 25 MG/5 ML(5MG/ML) SYRINGE As Ordered ONE (18:08)
[2023-11-30 18:59] VITALS: BP 147/67
[2023-11-30 20:20] VITALS: BP 134/63; TEMP 97.4; O2SAT 92
[2023-12-01 03:09] VITALS: BP 128/61; TEMP 97.4; O2SAT 93
[2023-12-01 06:16] LABS: BASO # 0.1 10^3/uL (0.0-0.2); BASO % 0.7 % (0.0-1.0); EOS # 0.2 10^3/uL (0.0-0.5); EOS % 1.8 % (0.0-3.0); HEMATOCRIT 33.8 % (42.0-52.0); HEMOGLOBIN 10.5 g/dl (13.5-17.5); LYMPH # 0.5 10^3/uL (1.5-5.0); LYMPH % 3.8 % (24.0-44.0); MEAN CORPUSCULAR HEMOGLOBIN 30.6 pg (27.0-33.0); MEAN CORPUSCULAR HGB CONC 31.1 g/dl (32.0-36.5); MEAN CORPUSCULAR VOLUME 98.5 fl (80.0-96.0); MONO # 0.9 10^3/uL (0.0-0.8); MONO % 7.2 % (2.0-8.0); NEUTROPHILS # 10.8 10^3/uL (1.5-8.5); NEUTROPHILS % 82.8 % (36.0-66.0); PLATELET COUNT, AUTOMATED 219 10^3/uL (150-450); RED BLOOD COUNT 3.43 10^6/uL (4.30-6.10)
[2023-12-01 06:44] LABS: CALCIUM LEVEL 8.5 MG/DL (8.3-10.6); CREATININE FOR GFR 1.29 MG/DL (0.70-1.30); GLOMERULAR FILTRATION RATE 57.5 (>42); MAGNESIUM LEVEL 2.1 MG/DL (1.8-2.4); POTASSIUM SERUM 3.8 MMOL/L (3.5-5.1)
[2023-12-01 08:04] VITALS: BP 149/67; TEMP 97.5; O2SAT 94
[2023-12-01] MEDS: POTASSIUM CHLORIDE 10MEQ SR TABLET PO SCH (09:43)
[2023-12-01 12:06] VITALS: BP 127/60; TEMP 98; O2SAT 98
[2023-12-01] MEDS: HEPARIN SOD (PORCINE) 5000UNITS/ML 1ML VIAL/SYRINGE SQ SCH (16:14)
[2023-12-01] MEDS: SALIVA SUBSTITUTE(MOUTHKOTE) BTL MT PRN (17:52)
[2023-12-01 18:57] VITALS: BP 137/63; TEMP 98.1; O2SAT 93
[2023-12-02 06:17] LABS: BASO # 0.1 10^3/uL (0.0-0.2); BASO % 0.7 % (0.0-1.0); EOS # 0.3 10^3/uL (0.0-0.5); EOS % 2.1 % (0.0-3.0); HEMATOCRIT 33.3 % (42.0-52.0); HEMOGLOBIN 10.3 g/dl (13.5-17.5); LYMPH # 0.5 10^3/uL (1.5-5.0); LYMPH % 4.4 % (24.0-44.0); MEAN CORPUSCULAR HEMOGLOBIN 30.4 pg (27.0-33.0); MEAN CORPUSCULAR HGB CONC 30.9 g/dl (32.0-36.5); MEAN CORPUSCULAR VOLUME 98.2 fl (80.0-96.0); MONO # 0.9 10^3/uL (0.0-0.8); MONO % 7.3 % (2.0-8.0); NEUTROPHILS # 10.1 10^3/uL (1.5-8.5); NEUTROPHILS % 82.7 % (36.0-66.0); PLATELET COUNT, AUTOMATED 222 10^3/uL (150-450); RED BLOOD COUNT 3.39 10^6/uL (4.30-6.10); WHITE BLOOD COUNT 12.2 10^3/uL (4.0-10.0)
[2023-12-02 06:42] LABS: ERYTHROCYTE SEDIMENTATION RATE 43 mm/hr (0-20)
[2023-12-02 06:47] LABS: C REACTIVE PROTEIN QUANTITATIV 3.3 MG/DL (<1.0)
[2023-12-02 06:49] LABS: CALCIUM LEVEL 8.5 MG/DL (8.3-10.6); CREATININE FOR GFR 1.32 MG/DL (0.70-1.30); POTASSIUM SERUM 4.2 MMOL/L (3.5-5.1)
[2023-12-02 08:11] VITALS: BP 134/60; TEMP 98.8; O2SAT 95
[2023-12-02] MEDS: predniSONE 20 MG TAB PO SCH (10:32)
[2023-12-02] MEDS: POTASSIUM CHLORIDE 10MEQ SR TABLET PO SCH (10:33)
[2023-12-02 12:10] VITALS: BP 126/61; TEMP 97.8; O2SAT 95
[2023-12-02 20:30] VITALS: BP 136/61; TEMP 98.4; O2SAT 93
[2023-12-03 03:31] VITALS: BP 136/63; TEMP 98.2; O2SAT 95
[2023-12-03 06:04] LABS: BASO % 0.3 % (0.0-1.0); EOS % 0.3 % (0.0-3.0); HEMATOCRIT 32.3 % (42.0-52.0); HEMOGLOBIN 9.9 g/dl (13.5-17.5); LYMPH # 0.4 10^3/uL (1.5-5.0); LYMPH % 3.5 % (24.0-44.0); MEAN CORPUSCULAR HEMOGLOBIN 30.6 pg (27.0-33.0); MEAN CORPUSCULAR HGB CONC 30.7 g/dl (32.0-36.5); MEAN CORPUSCULAR VOLUME 99.7 fl (80.0-96.0); MONO # 0.7 10^3/uL (0.0-0.8); MONO % 5.8 % (2.0-8.0); NEUTROPHILS # 10.1 10^3/uL (1.5-8.5); NEUTROPHILS % 87.7 % (36.0-66.0); PLATELET COUNT, AUTOMATED 217 10^3/uL (150-450); RED BLOOD COUNT 3.24 10^6/uL (4.30-6.10); WHITE BLOOD COUNT 11.5 10^3/uL (4.0-10.0)
[2023-12-03 06:28] LABS: CALCIUM LEVEL 8.9 MG/DL (8.3-10.6); CREATININE FOR GFR 1.43 MG/DL (0.70-1.30); MAGNESIUM LEVEL 2.2 MG/DL (1.8-2.4); POTASSIUM SERUM 3.9 MMOL/L (3.5-5.1)
[2023-12-03 08:09] VITALS: BP 140/64; TEMP 98.2; O2SAT 97
[2023-12-03] MEDS: SPIRONOLACTONE 25 MG TAB PO SCH (09:05)
[2023-12-03 12:00] VITALS: BP 137/60; TEMP 98; O2SAT 97
[2023-12-03 16:31] VITALS: BP 143/63; TEMP 98.4; O2SAT 91
[2023-12-03 19:55] VITALS: BP 140/61; TEMP 98.1; O2SAT 100
[2023-12-04 03:05] VITALS: BP 141/64; TEMP 97.8; O2SAT 91
[2023-12-04 05:59] LABS: BASO # 0.1 10^3/uL (0.0-0.2); BASO % 0.4 % (0.0-1.0); EOS # 0.1 10^3/uL (0.0-0.5); EOS % 0.6 % (0.0-3.0); HEMATOCRIT 33.7 % (42.0-52.0); HEMOGLOBIN 10.4 g/dl (13.5-17.5); LYMPH # 0.5 10^3/uL (1.5-5.0); LYMPH % 4.7 % (24.0-44.0); MEAN CORPUSCULAR HEMOGLOBIN 30.7 pg (27.0-33.0); MEAN CORPUSCULAR HGB CONC 30.9 g/dl (32.0-36.5); MEAN CORPUSCULAR VOLUME 99.4 fl (80.0-96.0); MONO # 0.7 10^3/uL (0.0-0.8); MONO % 6.5 % (2.0-8.0); NEUTROPHILS # 9.6 10^3/uL (1.5-8.5); NEUTROPHILS % 85.8 % (36.0-66.0); PLATELET COUNT, AUTOMATED 214 10^3/uL (150-450); RED BLOOD COUNT 3.39 10^6/uL (4.30-6.10); WHITE BLOOD COUNT 11.2 10^3/uL (4.0-10.0)
[2023-12-04 06:22] LABS: C REACTIVE PROTEIN QUANTITATIV 1.8 MG/DL (<1.0)
[2023-12-04 06:24] LABS: CREATININE FOR GFR 1.34 MG/DL (0.70-1.30); MAGNESIUM LEVEL 2.2 MG/DL (1.8-2.4); POTASSIUM SERUM 3.9 MMOL/L (3.5-5.1)
[2023-12-04 07:11] LABS: ERYTHROCYTE SEDIMENTATION RATE 35 mm/hr (0-20)
[2023-12-04 08:26] VITALS: BP 124/59; TEMP 98; O2SAT 93
[2023-12-04 12:35] VITALS: BP 146/65; TEMP 97.6; O2SAT 97
[2023-12-04 19:38] VITALS: BP 137/63; TEMP 97.2; O2SAT 100
[2023-12-05 03:22] VITALS: BP 138/62; TEMP 97.6; O2SAT 98
[2023-12-05 04:29] LABS: BASO % 0.3 % (0.0-1.0); EOS % 0.3 % (0.0-3.0); HEMATOCRIT 32.1 % (42.0-52.0); HEMOGLOBIN 10.1 g/dl (13.5-17.5); LYMPH # 0.4 10^3/uL (1.5-5.0); MEAN CORPUSCULAR HGB CONC 31.5 g/dl (32.0-36.5); MEAN CORPUSCULAR VOLUME 98.5 fl (80.0-96.0); MONO # 0.6 10^3/uL (0.0-0.8); MONO % 5.6 % (2.0-8.0); NEUTROPHILS # 9.5 10^3/uL (1.5-8.5); NEUTROPHILS % 88.1 % (36.0-66.0); PLATELET COUNT, AUTOMATED 213 10^3/uL (150-450); RED BLOOD COUNT 3.26 10^6/uL (4.30-6.10); WHITE BLOOD COUNT 10.7 10^3/uL (4.0-10.0)
[2023-12-05 04:56] LABS: CALCIUM LEVEL 8.8 MG/DL (8.3-10.6); CREATININE FOR GFR 1.31 MG/DL (0.70-1.30); GLOMERULAR FILTRATION RATE 56.5 (>42); MAGNESIUM LEVEL 2.1 MG/DL (1.8-2.4); POTASSIUM SERUM 3.9 MMOL/L (3.5-5.1)
[2023-12-05 07:52] VITALS: O2SAT 91
[2023-12-05 08:06] VITALS: BP 139/62; TEMP 97.6; O2SAT 96
[2023-12-05 11:45] VITALS: BP 136/61; TEMP 97.6; O2SAT 97
[2023-12-05 18:09] VITALS: BP 132/60; TEMP 98.6; O2SAT 94
[2023-12-06] VITALS (9 sets, daily range): BP systolic 136–149; BP diastolic 60–64; TEMP 97.3–98.6; O2SAT 88–99
[2023-12-06] MEDS: ACETAMINOPHEN TAB 650MG DOSE (2X325MG) PO PRN (02:44)
[2023-12-06 04:30] LABS: BASO % 0.2 % (0.0-1.0); EOS % 0.2 % (0.0-3.0); HEMATOCRIT 32.1 % (42.0-52.0); HEMOGLOBIN 10.2 g/dl (13.5-17.5); LYMPH # 0.4 10^3/uL (1.5-5.0); LYMPH % 3.3 % (24.0-44.0); MEAN CORPUSCULAR HEMOGLOBIN 30.8 pg (27.0-33.0); MEAN CORPUSCULAR HGB CONC 31.8 g/dl (32.0-36.5); MONO # 0.7 10^3/uL (0.0-0.8); MONO % 5.9 % (2.0-8.0); NEUTROPHILS # 11.1 10^3/uL (1.5-8.5); NEUTROPHILS % 88.3 % (36.0-66.0); PLATELET COUNT, AUTOMATED 230 10^3/uL (150-450); RED BLOOD COUNT 3.31 10^6/uL (4.30-6.10); WHITE BLOOD COUNT 12.6 10^3/uL (4.0-10.0)
[2023-12-06 04:46] LABS: ERYTHROCYTE SEDIMENTATION RATE 19 mm/hr (0-20)
[2023-12-06 04:59] LABS: C REACTIVE PROTEIN QUANTITATIV 0.8 MG/DL (<1.0)
[2023-12-06 05:00] LABS: CALCIUM LEVEL 8.6 MG/DL (8.3-10.6); CREATININE FOR GFR 1.32 MG/DL (0.70-1.30); MAGNESIUM LEVEL 2.1 MG/DL (1.8-2.4); POTASSIUM SERUM 3.8 MMOL/L (3.5-5.1)
[2023-12-06] MEDS: BUMETANIDE 1 MG TAB PO SCH (10:26)
[2023-12-06] MEDS: LEVALBUTEROL 1.25MG 0.5ML CONCENTRATE NEB INH SCH (14:36)
[2023-12-06] MEDS: RAMELTEON 8 MG TAB (ROZEREM) PO ONE (21:34)
[2023-12-07 03:44] VITALS: BP 144/64; TEMP 97.8; O2SAT 94
[2023-12-07 05:33] LABS: BASO # 0.1 10^3/uL (0.0-0.2); BASO % 0.4 % (0.0-1.0); EOS # 0.1 10^3/uL (0.0-0.5); EOS % 0.6 % (0.0-3.0); HEMATOCRIT 31.3 % (42.0-52.0); HEMOGLOBIN 10.1 g/dl (13.5-17.5); LYMPH # 0.5 10^3/uL (1.5-5.0); LYMPH % 3.7 % (24.0-44.0); MEAN CORPUSCULAR HEMOGLOBIN 30.6 pg (27.0-33.0); MEAN CORPUSCULAR HGB CONC 32.3 g/dl (32.0-36.5); MEAN CORPUSCULAR VOLUME 94.8 fl (80.0-96.0); MONO # 0.9 10^3/uL (0.0-0.8); MONO % 7.2 % (2.0-8.0); NEUTROPHILS # 10.7 10^3/uL (1.5-8.5); NEUTROPHILS % 85.4 % (36.0-66.0); PLATELET COUNT, AUTOMATED 237 10^3/uL (150-450); WHITE BLOOD COUNT 12.5 10^3/uL (4.0-10.0)
[2023-12-07 06:00] LABS: ALBUMIN 2.9 G/DL (3.2-5.2); CREATININE FOR GFR 1.4 MG/DL (0.70-1.30); GLOMERULAR FILTRATION RATE 52.3 (>42); MAGNESIUM LEVEL 2.3 MG/DL (1.8-2.4); POTASSIUM SERUM 4.1 MMOL/L (3.5-5.1)
[2023-12-07 08:00] VITALS: BP 128/59; TEMP 98.2; O2SAT 89
[2023-12-07 08:13] VITALS: BP 144/64
[2023-12-07] MEDS ORDERED: SPIR50TA4 PO (12:31)
[2023-12-07] MEDS ORDERED: PRED10TA2 PO (12:31)
[2023-12-07] MEDS ORDERED: POTA-150 PO (12:31)
[2023-12-07] MEDS ORDERED: BUME2TAB3 PO (12:31)
[2023-12-07] MEDS ORDERED: METO25TA PO (12:37)
[2023-12-07] MEDS ORDERED: SPIRONOLACTONE 50 MG TAB PO SCH (17:00)
== END 2023-12-07 14:55 | disposition home health service (06) | DRG 291 ==
LOC: EDBD 13:17 → M ED 13:58 → M ED INP 17:23 → M PCU 22:20 → ENRESERV 22:21
PROVIDERS: ADMIT General Practice; ATTEND Internal Medicine
PROC: B246ZZZ Ultrasonography of Right and Left Heart (ICD-10-PCS; principal; 2023-11-25)
PROC: B246ZZ4 Ultrasonography of Right and Left Heart, Transesophageal (ICD-10-PCS; 2023-11-30)
DX: I13.0 Hypertensive heart and chronic kidney disease with heart failure and stage 1 through stage 4 chronic kidney disease, or unspecified chronic kidney disease (principal); J96.21 Acute and chronic respiratory failure with hypoxia; I50.33 Acute on chronic diastolic (congestive) heart failure; J98.11 Atelectasis; N17.9 Acute kidney failure, unspecified; I48.92 Unspecified atrial flutter; J90 Pleural effusion, not elsewhere classified; K52.1 Toxic gastroenteritis and colitis; E87.0 Hyperosmolality and hypernatremia; E87.3 Alkalosis; J44.0 Chronic obstructive pulmonary disease with (acute) lower respiratory infection; J44.1 Chronic obstructive pulmonary disease with (acute) exacerbation; D68.9 Coagulation defect, unspecified; R78.81 Bacteremia; I42.8 Other cardiomyopathies; N18.32 Chronic kidney disease, stage 3b; J43.2 Centrilobular emphysema; E78.5 Hyperlipidemia, unspecified; K21.9 Gastro-esophageal reflux disease without esophagitis; I25.10 Atherosclerotic heart disease of native coronary artery without angina pectoris; R91.1 Solitary pulmonary nodule; K70.31 Alcoholic cirrhosis of liver with ascites; N20.0 Calculus of kidney; D63.1 Anemia in chronic kidney disease; G47.33 Obstructive sleep apnea (adult) (pediatric); I48.91 Unspecified atrial fibrillation; I27.29 Other secondary pulmonary hypertension; N40.1 Benign prostatic hyperplasia with lower urinary tract symptoms; R33.9 Retention of urine, unspecified; T36.0X5A Adverse effect of penicillins, initial encounter; T36.8X5A Adverse effect of other systemic antibiotics, initial encounter; E83.41 Hypermagnesemia; R31.0 Gross hematuria; K76.1 Chronic passive congestion of liver; I50.813 Acute on chronic right heart failure; M10.9 Gout, unspecified; D50.9 Iron deficiency anemia, unspecified; E87.6 Hypokalemia; E78.2 Mixed hyperlipidemia; Z87.891 Personal history of nicotine dependence; Z98.41 Cataract extraction status, right eye; Z98.42 Cataract extraction status, left eye; Z95.0 Presence of cardiac pacemaker; Z79.82 Long term (current) use of aspirin; Z95.828 Presence of other vascular implants and grafts; Z79.899 Other long term (current) drug therapy; Z88.8 Allergy status to other drugs, medicaments and biological substances; Z99.81 Dependence on supplemental oxygen

== ENCOUNTER → 2024-01-10 | Outpatient (REF) | payer MEDICARE ==
[~2024-01-10] MED LIST changes: +ASPI-615 PO; +BREO1INH3; +BREO1INH3 INH; +BUDE10.7; +BUME2TAB3 PO; +C-101TAB3 PO; +CARV3.12; +CARV3.12 PO; +CETI-14 PO; +CHEL50TA3 PO; +CVS50CAP PO; +D 50CAP2 PO; +DOCU100C16 PO; +EPLE25TA2; +EPLE25TA2 PO; +FLON1SPR NARES; +FLUT1BLS17; +GENT28CA2 PO; +GNP1000T11 PO; +IPRA3SP NARES; +METO25TA PO; +MUCI1TAB16 PO; +NEXI20CA PO; +OMEG10002 PO; +OMEGCAP9 PO; +POTA-136; +POTA-150 PO; +PRED10TA2 PO; +RISATAB3 PO; +SODI88SP NARES; +SPIR50TA4 PO; +VITA500T34 PO; +ZYRTTAB8 PO; +glucosamine PO; +zinc PO
== END ==
LOC: M LAB REF 17:09
PROVIDERS: ATTEND Internal Medicine Nephrology
DX: D50.9 Iron deficiency anemia, unspecified (principal)

== ENCOUNTER → 2024-01-11 | Outpatient (REF) | payer MEDICARE ==
[2024-01-11 18:49] LABS: HEMATOCRIT 23.8 % (42.0-52.0); HEMOGLOBIN 7.2 g/dl (13.5-17.5); MEAN CORPUSCULAR HEMOGLOBIN 30.9 pg (27.0-33.0); MEAN CORPUSCULAR HGB CONC 30.3 g/dl (32.0-36.5); MEAN CORPUSCULAR VOLUME 102.1 fl (80.0-96.0); PLATELET COUNT, AUTOMATED 350 10^3/uL (150-450); RED BLOOD COUNT 2.33 10^6/uL (4.30-6.10); WHITE BLOOD COUNT 13.4 10^3/uL (4.0-10.0)
[2024-01-11 19:20] LABS: URIC ACID 8.6 MG/DL (3.7-9.2)
[2024-01-11 19:21] LABS: LIPASE 57 U/L (12-53)
[2024-01-11 19:22] LABS: AMYLASE 96 U/L (30-118)
[2024-01-11 19:36] LABS: HEPATITIS B SURFACE ANTIGEN NEGATIVE (NEGATIVE)
[2024-01-11 19:41] LABS: ATYPICAL LYMPH 2 % (0-5); BASOPHILS 1 % (0-1); EOSINOPHILS 3 % (0-3); LYMPHOCYTES 8 % (16-44); METAMYELOCYTES 1 % (0-0); MONOCYTES 2 % (0-5); MYELOCYTES 3 % (0-0); NEUTROPHILS 75 % (28-66); PLATELET ESTIMATE NORMAL (NORMAL)
[2024-01-11 19:43] LABS: ANISOCYTOSIS 2+
[2024-01-11 19:56] LABS: HEPATITIS B CORE ANTIBODY IGM NEGATIVE (NEGATIVE); HEPATITIS C VIRUS ABY INDEX < 0.02 INDEX (<0.8)
[2024-01-11 19:58] LABS: ALBUMIN 3.5 G/DL (3.2-5.2); ALKALINE PHOSPHATASE 108 U/L (46-116); ALT/SGPT 26 U/L (7.0-40); AST/SGOT 20 U/L (<34); BILIRUBIN,DIRECT 0.2 MG/DL (<0.4); BILIRUBIN,TOTAL 0.4 MG/DL (0.3-1.2); BLOOD UREA NITROGEN 97 MG/DL (9-23); CALCIUM LEVEL 11.8 MG/DL (8.3-10.6); CARBON DIOXIDE LEVEL 25 MMOL/L (20-31); CHLORIDE LEVEL 108 MMOL/L (98-107); CREATININE FOR GFR 2.01 MG/DL (0.70-1.30); GLOMERULAR FILTRATION RATE 34.5 (>42); GLUCOSE, FASTING 113 MG/DL (74-106); SODIUM LEVEL 140 MMOL/L (136-145)
== END ==
LOC: M LABWUC 17:49
PROVIDERS: ATTEND Nurse Practitioner
DX: K76.9 Liver disease, unspecified (principal)

== ENCOUNTER → 2024-01-16 | Outpatient (CLI) | payer MEDICARE ==
[2024-01-16 17:16] LABS: BASO # 0.1 10^3/uL (0.0-0.2); BASO % 1.1 % (0.0-1.0); EOS # 0.2 10^3/uL (0.0-0.5); EOS % 2.3 % (0.0-3.0); HEMATOCRIT 27.7 % (42.0-52.0); HEMOGLOBIN 8.5 g/dl (13.5-17.5); LYMPH # 0.8 10^3/uL (1.5-5.0); LYMPH % 7.7 % (24.0-44.0); MEAN CORPUSCULAR HEMOGLOBIN 31.5 pg (27.0-33.0); MEAN CORPUSCULAR HGB CONC 30.7 g/dl (32.0-36.5); MEAN CORPUSCULAR VOLUME 102.6 fl (80.0-96.0); MONO # 1.3 10^3/uL (0.0-0.8); MONO % 12.4 % (2.0-8.0); NEUTROPHILS # 7.4 10^3/uL (1.5-8.5); NEUTROPHILS % 71.7 % (36.0-66.0); PLATELET COUNT, AUTOMATED 302 10^3/uL (150-450); WHITE BLOOD COUNT 10.3 10^3/uL (4.0-10.0)
[2024-01-16 17:36] LABS: CALCIUM LEVEL 9.6 MG/DL (8.3-10.6); CREATININE FOR GFR 1.83 MG/DL (0.70-1.30); FERRITIN 77.5 NG/ML (10.5-307.3); GLOMERULAR FILTRATION RATE 38.4 (>42); MAGNESIUM LEVEL 2.3 MG/DL (1.8-2.4); PHOSPHORUS LEVEL 4.7 MG/DL (2.4-5.1); POTASSIUM SERUM 4.2 MMOL/L (3.5-5.1)
== END ==
LOC: M WUC 14:40
PROVIDERS: ATTEND Internal Medicine
DX: K92.2 Gastrointestinal hemorrhage, unspecified (principal); D64.9 Anemia, unspecified; I21.4 Non-ST elevation (NSTEMI) myocardial infarction; N18.30 Chronic kidney disease, stage 3 unspecified

== ENCOUNTER → 2024-06-10 | Outpatient (REF) | payer MEDICARE ==
[2024-06-10 21:14] LABS: APPEARANCE, URINE CLEAR (CLEAR); BACTERIA, URINE AUTO NEGATIVE (NEGATIVE); BILIRUBIN, URINE AUTO NEGATIVE (NEGATIVE); BLOOD, URINE BLOOD NEGATIVE (NEGATIVE); COLOR, URINE YELLOW (YELLOW); GLUCOSE, URINE (UA) AUTO NEGATIVE (NEGATIVE); KETONE, URINE AUTO NEGATIVE (NEGATIVE); LEUKOCYTE ESTERASE, URINE AUTO TRACE (NEGATIVE); NITRITE, URINE AUTO NEGATIVE (NEGATIVE); PROTEIN, URINE AUTO NEGATIVE (NEGATIVE); RBC, URINE AUTO 0 /HPF (0-3); SPECIFIC GRAVITY URINE AUTO 1.012 (1.002-1.035); SQUAMOUS EPITHELIAL CELL UR AU 1 /HPF (0-6); UROBILINOGEN, URINE AUTO 0.2 mg/dL (0.0-2.0); WBC, URINE AUTO 0 /HPF (0-3)
== END ==
LOC: M LAB REF 20:18
PROVIDERS: ATTEND Physician Assistant Medical
DX: N39.0 Urinary tract infection, site not specified (principal)

== ENCOUNTER → 2024-07-10 | Outpatient (CLI) | payer MEDICARE ==
[~2024-07-10] MED LIST changes: +EPLE25TA15; +EPLE25TA15 PO; -EPLE25TA2; -EPLE25TA2 PO
[2024-07-10 17:47] LABS: BASO # 0.1 10^3/uL (0.0-0.2); BASO % 1.4 % (0.0-1.0); EOS # 0.2 10^3/uL (0.0-0.5); EOS % 2.4 % (0.0-3.0); HEMATOCRIT 26.9 % (42.0-52.0); LYMPH # 0.5 10^3/uL (1.5-5.0); LYMPH % 7.7 % (24.0-44.0); MEAN CORPUSCULAR HGB CONC 29.7 g/dl (32.0-36.5); MEAN CORPUSCULAR VOLUME 100.7 fl (80.0-96.0); MONO # 0.7 10^3/uL (0.0-0.8); MONO % 10.8 % (2.0-8.0); NEUTROPHILS # 4.7 10^3/uL (1.5-8.5); NEUTROPHILS % 76.3 % (36.0-66.0); PLATELET COUNT, AUTOMATED 233 10^3/uL (150-450); RED BLOOD COUNT 2.67 10^6/uL (4.30-6.10); WHITE BLOOD COUNT 6.2 10^3/uL (4.0-10.0)
[2024-07-10 18:08] LABS: ALBUMIN 3.2 G/DL (3.2-5.2); ALKALINE PHOSPHATASE 146 U/L (40-129); ALT/SGPT 12 U/L (7.0-40); AST/SGOT < 8 U/L (<34); BILIRUBIN,TOTAL 0.4 MG/DL (0.3-1.2); BLOOD UREA NITROGEN 89 MG/DL (9-23); CALCIUM LEVEL 10.7 MG/DL (8.3-10.6); CARBON DIOXIDE LEVEL 32 MMOL/L (20-31); CHLORIDE LEVEL 101 MMOL/L (98-107); CREATININE FOR GFR 2.75 MG/DL (0.70-1.30); GLUCOSE, FASTING 115 MG/DL (74-106); POTASSIUM SERUM 3.4 MMOL/L (3.5-5.1); SODIUM LEVEL 141 MMOL/L (136-145)
== END ==
LOC: M WUC 14:51
PROVIDERS: ATTEND Nurse Practitioner Family
DX: N18.9 Chronic kidney disease, unspecified (principal); D50.0 Iron deficiency anemia secondary to blood loss (chronic)

== ENCOUNTER → 2024-09-12 | Outpatient (REF) | payer MEDICARE ==
[2024-09-12 22:13] LABS: APPEARANCE, URINE CLEAR (CLEAR); BACTERIA, URINE AUTO NEGATIVE (NEGATIVE); BILIRUBIN, URINE AUTO NEGATIVE (NEGATIVE); BLOOD, URINE BLOOD NEGATIVE (NEGATIVE); COLOR, URINE YELLOW (YELLOW); GLUCOSE, URINE (UA) AUTO NEGATIVE (NEGATIVE); KETONE, URINE AUTO NEGATIVE (NEGATIVE); LEUKOCYTE ESTERASE, URINE AUTO TRACE (NEGATIVE); NITRITE, URINE AUTO NEGATIVE (NEGATIVE); PROTEIN, URINE AUTO NEGATIVE (NEGATIVE); RBC, URINE AUTO 2 /HPF (0-3); SQUAMOUS EPITHELIAL CELL UR AU 1 /HPF (0-6); UROBILINOGEN, URINE AUTO 0.2 mg/dL (0.0-2.0); WBC, URINE AUTO 2 /HPF (0-3)
== END ==
LOC: M LAB REF 21:36
PROVIDERS: ATTEND Physician Assistant
DX: N39.0 Urinary tract infection, site not specified (principal)

== ENCOUNTER → 2024-09-20 | Outpatient (REF) | payer MEDICARE | LOC: M LAB REF 19:21 | PROVIDERS: ATTEND Student in an Organized Health Care Education/Training Program | DX: J44.9 Chronic obstructive pulmonary disease, unspecified (principal) ==

== ENCOUNTER → 2024-10-05 | Outpatient (CLI) | payer MEDICARE ==
[2024-10-05 17:25] LABS: HEMATOCRIT 24.1 % (42.0-52.0); HEMOGLOBIN 7.4 g/dl (13.5-17.5); MEAN CORPUSCULAR HEMOGLOBIN 31.4 pg (27.0-33.0); MEAN CORPUSCULAR HGB CONC 30.7 g/dl (32.0-36.5); MEAN CORPUSCULAR VOLUME 102.1 fl (80.0-96.0); PLATELET COUNT, AUTOMATED 170 10^3/uL (150-450); RED BLOOD COUNT 2.36 10^6/uL (4.30-6.10); WHITE BLOOD COUNT 7.1 10^3/uL (4.0-10.0)
[2024-10-05 17:28] LABS: APPEARANCE, URINE HAZY (CLEAR); BACTERIA, URINE AUTO NEGATIVE (NEGATIVE); BILIRUBIN, URINE AUTO NEGATIVE (NEGATIVE); BLOOD, URINE BLOOD NEGATIVE (NEGATIVE); COLOR, URINE YELLOW (YELLOW); GLUCOSE, URINE (UA) AUTO NEGATIVE (NEGATIVE); KETONE, URINE AUTO NEGATIVE (NEGATIVE); LEUKOCYTE ESTERASE, URINE AUTO 3+ (NEGATIVE); NITRITE, URINE AUTO NEGATIVE (NEGATIVE); PROTEIN, URINE AUTO NEGATIVE (NEGATIVE); RBC, URINE AUTO 6 /HPF (0-3); SPECIFIC GRAVITY URINE AUTO 1.016 (1.002-1.035); SQUAMOUS EPITHELIAL CELL UR AU 4 /HPF (0-6); UROBILINOGEN, URINE AUTO 0.2 mg/dL (0.0-2.0); WBC, URINE AUTO 17 /HPF (0-3)
[2024-10-05 17:42] LABS: ALBUMIN 3.3 G/DL (3.2-5.2); CALCIUM LEVEL 9.8 MG/DL (8.3-10.6); CREATININE FOR GFR 4.64 MG/DL (0.70-1.30); GLOMERULAR FILTRATION RATE 13.1 (>42); PHOSPHORUS LEVEL 7.6 MG/DL (2.4-5.1); POTASSIUM SERUM 3.7 MMOL/L (3.5-5.1); TOTAL PROTEIN,RANDOM URINE 20.2 MG/DL (0.0-14.0)
== END ==
LOC: M WUC 13:49
PROVIDERS: ATTEND Nurse Practitioner Family
DX: N18.4 Chronic kidney disease, stage 4 (severe) (principal)

== ENCOUNTER 2024-10-17 10:47 | Inpatient (IN) | payer MEDICARE ==
[~2024-10-17] VITALS: Ht 177.8 cm; Wt 102.1 kg
[2024-10-17 12:02] LABS: BASO % 0.1 % (0.0-1.0); EOS % 0.1 % (0.0-3.0); LYMPH # 0.2 10^3/uL (1.5-5.0); LYMPH % 2.6 % (24.0-44.0); MEAN CORPUSCULAR HEMOGLOBIN 31.5 pg (27.0-33.0); MEAN CORPUSCULAR HGB CONC 31.2 g/dl (32.0-36.5); MONO # 0.4 10^3/uL (0.0-0.8); MONO % 5.3 % (2.0-8.0); NEUTROPHILS # 6.7 10^3/uL (1.5-8.5); NEUTROPHILS % 90.7 % (36.0-66.0); PLATELET COUNT, AUTOMATED 181 10^3/uL (150-450); RED BLOOD COUNT 2.03 10^6/uL (4.30-6.10); WHITE BLOOD COUNT 7.4 10^3/uL (4.0-10.0)
[2024-10-17 12:04] LABS: HEMATOCRIT 20.5 % (42.0-52.0); HEMOGLOBIN 6.4 g/dl (13.5-17.5)
[2024-10-17 12:59] LABS: ALBUMIN 3.3 G/DL (3.2-5.2); BILIRUBIN,DIRECT 0.2 MG/DL (<0.4); BILIRUBIN,TOTAL 0.4 MG/DL (0.3-1.2); CALCIUM LEVEL 10.8 MG/DL (8.3-10.6); GLOMERULAR FILTRATION RATE 15.6 (>42); POTASSIUM SERUM 3.2 MMOL/L (3.5-5.1); TOTAL PROTEIN 5.9 G/DL (5.7-8.2)
[2024-10-17] MEDS ORDERED: ASCO500T PO (13:35)
[2024-10-17 13:39] VITALS: BP 134/63; TEMP 96.9; O2SAT 100
[2024-10-17 13:53] VITALS: BP 122/60; TEMP 97.2; O2SAT 100
[2024-10-17] MEDS ORDERED: METO25TA PO (13:56)
[2024-10-17] MEDS ORDERED: AZEL137S8 NARES (13:56)
[2024-10-17] MEDS ORDERED: OMEP40CA5 PO (13:56)
[2024-10-17] MEDS ORDERED: PRED5TA PO (13:57)
[2024-10-17] MEDS ORDERED: TORS20TA2 PO (13:58)
[2024-10-17] MEDS ORDERED: HOME MED LIST COMPLETE! XX SCH (14:00)
[2024-10-17] MEDS ORDERED: DOXY100T PO (14:06)
[2024-10-17 14:09] LABS: CK-MB VALUE MASS 5.2 NG/ML (<3.6)
[2024-10-17 14:10] LABS: CPK CREATINE PHOSPHOKINASE 88 U/L (46-171)
[2024-10-17] MEDS: POTASSIUM CHLORIDE 10MEQ SR TABLET PO ONE (14:23)
[2024-10-17 14:40] VITALS: TEMP 96.4
[2024-10-17 14:43] LABS: C REACTIVE PROTEIN QUANTITATIV < 0.50 MG/DL (<1.0)
[2024-10-17 16:55] VITALS: TEMP 96.6
[2024-10-17] MEDS: allopurinoL 100 MG TAB PO SCH (18:31)
[2024-10-17 19:34] VITALS: BP 128/55; TEMP 96.9; O2SAT 97
[2024-10-17] MEDS: FUROSEMIDE 100MG/10ML VIAL IV SCH (19:44)
[2024-10-17 20:14] LABS: IMMUNOGLOBULIN A 104.3 MG/DL (40-350); IMMUNOGLOBULIN G 446 MG/DL (650-1600)
[2024-10-17 20:29] LABS: IMMUNOGLOBULIN M < 21.0 MG/DL (50-300)
[2024-10-17 20:48] LABS: PROCALCITONIN 0.34 ng/ml
[2024-10-17] MEDS: cefTRIAXone SOD 2 GM in DEXTROSE 5% (D5W) ADV/MINI-BAG 50 ML IV SCH (21:11)
[2024-10-17] MEDS: TAMSULOSIN 0.4 MG CAP PO SCH (21:11)
[2024-10-17] MEDS: guaiFENesin ER TABLET 600 MG TAB PO SCH (21:11)
[2024-10-17] MEDS: TORSEMIDE 20 MG TAB PO ONE (21:12)
[2024-10-17] MEDS: DOXYCYCLINE HYCLATE 100MG TABLET PO SCH (21:12)
[2024-10-17] MEDS: MONTELUKAST 10 MG TAB PO SCH (21:12)
[2024-10-17] MEDS: FLUTICASONE PROP 0.05% NASAL SPRAY 16 GM (FLONASE) NARES SCH (21:15)
[2024-10-17 21:48] LABS: HEMATOCRIT 23.8 % (42.0-52.0); HEMOGLOBIN 7.6 g/dl (13.5-17.5)
[2024-10-17 21:54] LABS: ERYTHROCYTE SEDIMENTATION RATE 5 mm/hr (0-20)
[2024-10-17 22:13] LABS: CK-MB VALUE MASS 5.8 NG/ML (<3.6)
[2024-10-17 22:14] LABS: MB/CK RELATIVE INDEX 6.74 (< OR =4)
[2024-10-17 22:19] LABS: HEMOGLOBIN A1c 5.2 % (4.0-6.0)
[2024-10-18] MEDS: LEVALBUTEROL 1.25MG 0.5ML CONCENTRATE NEB INH PRN (00:17)
[2024-10-18] MEDS: IPRATROPIUM 0.02% SOLN 0.5MG 2.5ML NEB INH PRN (00:17)
[2024-10-18 04:48] VITALS: BP 136/60; TEMP 98; O2SAT 95
[2024-10-18 07:44] VITALS: BP 114/56; TEMP 98; O2SAT 96
[2024-10-18] MEDS: ASPIRIN 81MG CHEW TABLET PO SCH (08:14)
[2024-10-18] MEDS: VITAMIN D 1,000 INTERNATIONAL UNITS TABLET PO SCH (08:14)
[2024-10-18] MEDS: ASCORBIC ACID 500 MG TAB PO SCH (08:15)
[2024-10-18] MEDS: MIDODRINE 5 MG TAB PO ONE (08:32)
[2024-10-18] MEDS: FUROSEMIDE 100MG/10ML VIAL IV SCH (09:00)
[2024-10-18 09:15] LABS: BASO % 0.1 % (0.0-1.0); EOS # 0.1 10^3/uL (0.0-0.5); EOS % 0.8 % (0.0-3.0); HEMATOCRIT 22.6 % (42.0-52.0); HEMOGLOBIN 7.2 g/dl (13.5-17.5); LYMPH # 0.7 10^3/uL (1.5-5.0); LYMPH % 7.8 % (24.0-44.0); MEAN CORPUSCULAR HEMOGLOBIN 30.9 pg (27.0-33.0); MEAN CORPUSCULAR HGB CONC 31.9 g/dl (32.0-36.5); MONO % 11.8 % (2.0-8.0); NEUTROPHILS # 6.5 10^3/uL (1.5-8.5); NEUTROPHILS % 77.9 % (36.0-66.0); PLATELET COUNT, AUTOMATED 165 10^3/uL (150-450); RED BLOOD COUNT 2.33 10^6/uL (4.30-6.10); WHITE BLOOD COUNT 8.3 10^3/uL (4.0-10.0)
[2024-10-18 09:18] VITALS: BP 119/56
[2024-10-18 09:33] LABS: COMPLEMENT C3 101.5 MG/DL (90.0-170.0); COMPLEMENT C4 18.1 MG/DL (12-36)
[2024-10-18 09:43] LABS: CALCIUM LEVEL 9.8 MG/DL (8.3-10.6); CHOLESTEROL RISK RATIO 3.02 (<5); CREATININE FOR GFR 3.8 MG/DL (0.70-1.30); FREE THYROXINE INDEX 1.6 % (1.4-3.8); GLOMERULAR FILTRATION RATE 16.5 (>42); HDL CHOLESTEROL 48.9 MG/DL (>40); LDL CHOLESTEROL 75.5 MG/DL (<100); NON-HDL-C 99.1 MG/DL; POTASSIUM SERUM 2.9 MMOL/L (3.5-5.1); T UPTAKE 37.4 % (22.5-37.0); THYROID STIMULATING HORMONE 5.844 uIU/ML (0.55-4.78); THYROXINE (T4) 4.2 UG/DL (4.5-10.9)
[2024-10-18] MEDS: POTASSIUM CHLORIDE 10MEQ SR TABLET PO ONE (10:19)
[2024-10-18 10:25] LABS: MAGNESIUM LEVEL 2.7 MG/DL (1.8-2.4)
[2024-10-18] MEDS: TORSEMIDE 100 MG TAB PO SCH (11:43)
[2024-10-18 11:53] VITALS: BP 125/58; TEMP 96.9; O2SAT 93
[2024-10-18 16:31] VITALS: BP 117/54; TEMP 97.6; O2SAT 94
[2024-10-18 20:00] VITALS: BP 122/58; TEMP 97.9; O2SAT 94
[2024-10-18 20:16] LABS: ALBUMIN 3.1 G/DL (3.2-5.2); CALCIUM LEVEL 9.7 MG/DL (8.3-10.6); CREATININE FOR GFR 3.74 MG/DL (0.70-1.30); GLOMERULAR FILTRATION RATE 16.8 (>42); PHOSPHORUS LEVEL 6.5 MG/DL (2.4-5.1)
[2024-10-19] VITALS: BP 116/55; TEMP 96.7; O2SAT 97
[2024-10-19 04:00] VITALS: BP 119/59; TEMP 96.7; O2SAT 96
[2024-10-19 06:53] LABS: BASO % 0.2 % (0.0-1.0); EOS # 0.1 10^3/uL (0.0-0.5); EOS % 1.2 % (0.0-3.0); HEMATOCRIT 21.7 % (42.0-52.0); LYMPH # 0.4 10^3/uL (1.5-5.0); LYMPH % 4.4 % (24.0-44.0); MEAN CORPUSCULAR HEMOGLOBIN 31.4 pg (27.0-33.0); MEAN CORPUSCULAR HGB CONC 32.3 g/dl (32.0-36.5); MEAN CORPUSCULAR VOLUME 97.3 fl (80.0-96.0); MONO # 1.1 10^3/uL (0.0-0.8); NEUTROPHILS # 8.2 10^3/uL (1.5-8.5); NEUTROPHILS % 81.6 % (36.0-66.0); PLATELET COUNT, AUTOMATED 162 10^3/uL (150-450); RED BLOOD COUNT 2.23 10^6/uL (4.30-6.10); WHITE BLOOD COUNT 10.1 10^3/uL (4.0-10.0)
[2024-10-19 07:22] LABS: T P ELECTROPHORESIS SO 5.6 g/dL (6.1-8.1)
[2024-10-19 07:24] VITALS: BP 118/58; TEMP 97.6; O2SAT 94
[2024-10-19 07:42] LABS: CALCIUM LEVEL 9.7 MG/DL (8.3-10.6); CREATININE FOR GFR 3.72 MG/DL (0.70-1.30); GLOMERULAR FILTRATION RATE 16.9 (>42); POTASSIUM SERUM 3.1 MMOL/L (3.5-5.1)
[2024-10-19 08:58] LABS: T P ELECTROPHORESIS SO 5.9 g/dL (6.1-8.1)
[2024-10-19] MEDS ORDERED: PREVNAR-20 VACCINE 0.5ML SYRINGE IM.IMMUN ONE (09:00)
[2024-10-19] MEDS ORDERED: MINOCYCLINE 50 MG CAP PO SCH (09:30)
[2024-10-19 14:52] LABS: PROTEIN CREATININE RATIO 210 mg/g creat (25-148); UPEP CREATININE 62 mg/dL (20-320); UPEP TOTAL PROTEIN 13 mg/dL (5-25)
[2024-10-21 18:07] LABS: COMPLEMENT TOTAL (CH50) > 60 U/mL (31-60)
[2024-10-22 08:22] LABS: UPEP ALBUMIN 45 %; URINE ALPHA 1 GLOBULIN 13 %; URINE ALPHA 2 GLOBULIN 14 %; URINE BETA GLOBULIN 16 %; URINE GAMMA GLOBULIN 12 %
[2024-10-22 08:22] LABS: ALBUMIN SPEP 3.6 g/dL (3.8-4.8); ALPHA-1-GLOBULINS SO 0.4 g/dL (0.2-0.3); ALPHA-2-GLOBULINS SO 0.5 g/dL (0.5-0.9); BETA 2 GLOBULIN 0.2 g/dL (0.2-0.5); BETA-GLOBULIN SO 0.4 g/dL (0.4-0.6); GAMMA GLOBULINS SO 0.4 g/dL (0.8-1.7)
[2024-10-22 08:22] LABS: ALBUMIN SPEP 3.8 g/dL (3.8-4.8); ALPHA-1-GLOBULINS SO 0.5 g/dL (0.2-0.3); ALPHA-2-GLOBULINS SO 0.5 g/dL (0.5-0.9); BETA 2 GLOBULIN 0.2 g/dL (0.2-0.5); BETA-GLOBULIN SO 0.4 g/dL (0.4-0.6); GAMMA GLOBULINS SO 0.4 g/dL (0.8-1.7)
[2024-10-22 21:18] LABS: URINE STREP PNEUMONIAE ANTIGEN NOT DETECTED (NOT DETECT)
== END 2024-10-19 09:33 | disposition left against medical advice (07) | DRG 194 ==
LOC: M ED 10:47 → M ED INP 12:47 → M PCU 22:56
PROVIDERS: ADMIT General Practice; ATTEND General Practice
PROC: B246ZZZ Ultrasonography of Right and Left Heart (ICD-10-PCS; principal; 2024-10-17)
PROC: 30233N1 Transfusion of Nonautologous Red Blood Cells into Peripheral Vein, Percutaneous Approach (ICD-10-PCS; 2024-10-17)
DX: J18.9 Pneumonia, unspecified organism (principal); I50.42 Chronic combined systolic (congestive) and diastolic (congestive) heart failure; N18.4 Chronic kidney disease, stage 4 (severe); I13.0 Hypertensive heart and chronic kidney disease with heart failure and stage 1 through stage 4 chronic kidney disease, or unspecified chronic kidney disease; I48.92 Unspecified atrial flutter; J98.11 Atelectasis; I24.89 Other forms of acute ischemic heart disease; J44.0 Chronic obstructive pulmonary disease with (acute) lower respiratory infection; K76.6 Portal hypertension; N17.9 Acute kidney failure, unspecified; D62 Acute posthemorrhagic anemia; K70.31 Alcoholic cirrhosis of liver with ascites; D63.1 Anemia in chronic kidney disease; E78.5 Hyperlipidemia, unspecified; K21.9 Gastro-esophageal reflux disease without esophagitis; I25.10 Atherosclerotic heart disease of native coronary artery without angina pectoris; I27.20 Pulmonary hypertension, unspecified; J32.9 Chronic sinusitis, unspecified; Z66 Do not resuscitate; E83.52 Hypercalcemia; E87.6 Hypokalemia; E83.39 Other disorders of phosphorus metabolism; E87.8 Other disorders of electrolyte and fluid balance, not elsewhere classified; I49.5 Sick sinus syndrome; I48.91 Unspecified atrial fibrillation; M10.9 Gout, unspecified; L89.152 Pressure ulcer of sacral region, stage 2; N40.0 Benign prostatic hyperplasia without lower urinary tract symptoms; Z79.82 Long term (current) use of aspirin; Z79.899 Other long term (current) drug therapy; Z95.0 Presence of cardiac pacemaker; Z88.8 Allergy status to other drugs, medicaments and biological substances; Z95.828 Presence of other vascular implants and grafts; Z98.41 Cataract extraction status, right eye; Z98.42 Cataract extraction status, left eye; Z87.891 Personal history of nicotine dependence; Z91.198 Patient's noncompliance with other medical treatment and regimen for other reason

== ENCOUNTER → 2024-11-02 | Outpatient (CLI) | payer MEDICARE ==
[~2024-11-02] MED LIST changes: +ASCO500T PO; +AZEL137S8 NARES; +DOXY100T PO; +OMEP40CA5 PO; +PRED5TA PO
[2024-11-02 18:30] LABS: ALBUMIN 3.2 G/DL (3.2-5.2); BILIRUBIN,DIRECT 0.3 MG/DL (<0.4); BILIRUBIN,TOTAL 0.7 MG/DL (0.3-1.2); CALCIUM LEVEL 8.8 MG/DL (8.3-10.6); CREATININE FOR GFR 2.61 MG/DL (0.70-1.30); GLOMERULAR FILTRATION RATE 25.4 (>42); POTASSIUM SERUM 2.8 MMOL/L (3.5-5.1); TOTAL PROTEIN 5.5 G/DL (5.7-8.2)
== END ==
LOC: M WUC 15:31
PROVIDERS: ATTEND Student in an Organized Health Care Education/Training Program
DX: Z22.39 Carrier of other specified bacterial diseases (principal); Z86.19 Personal history of other infectious and parasitic diseases

== ENCOUNTER → 2024-11-28 | Outpatient (CLI) | payer MEDICARE ==
[2024-11-28 18:48] LABS: BASO # 0.1 10^3/uL (0.0-0.2); BASO % 1.1 % (0.0-1.0); EOS # 0.2 10^3/uL (0.0-0.5); HEMATOCRIT 27.2 % (42.0-52.0); HEMOGLOBIN 8.4 g/dl (13.5-17.5); LYMPH # 0.5 10^3/uL (1.5-5.0); LYMPH % 7.2 % (24.0-44.0); MEAN CORPUSCULAR HEMOGLOBIN 31.8 pg (27.0-33.0); MEAN CORPUSCULAR HGB CONC 30.9 g/dl (32.0-36.5); MONO # 0.7 10^3/uL (0.0-0.8); MONO % 10.5 % (2.0-8.0); NEUTROPHILS # 4.9 10^3/uL (1.5-8.5); PLATELET COUNT, AUTOMATED 216 10^3/uL (150-450); RED BLOOD COUNT 2.64 10^6/uL (4.30-6.10); WHITE BLOOD COUNT 6.4 10^3/uL (4.0-10.0)
[2024-11-28 18:51] LABS: ALBUMIN 3.2 G/DL (3.2-5.2); BILIRUBIN,TOTAL 0.5 MG/DL (0.3-1.2); CALCIUM LEVEL 9.3 MG/DL (8.3-10.6); CREATININE FOR GFR 2.66 MG/DL (0.70-1.30); GLOMERULAR FILTRATION RATE 24.9 (>42); POTASSIUM SERUM 3.1 MMOL/L (3.5-5.1); TOTAL PROTEIN 5.9 G/DL (5.7-8.2)
[2024-11-28 18:53] LABS: THYROID STIMULATING HORMONE 5.257 uIU/ML (0.55-4.78)
== END ==
LOC: M WUC 15:09
PROVIDERS: ATTEND Family Medicine
DX: J44.9 Chronic obstructive pulmonary disease, unspecified (principal); N18.32 Chronic kidney disease, stage 3b; E07.9 Disorder of thyroid, unspecified